=== PATIENT | female | born 1955 ===

== ENCOUNTER 2017-09-03 14:30 | Inpatient (IN) | payer OTHER ==
[~2017-09-03] VITALS: Ht 160 cm; Wt 59.0 kg
[~2017-09-03 14:30] MED LIST: AMITRIPTYLINE H50 MG; NABUMETONE750 MG; NEURONTIN300 MG; PRILOSEC20 MG; TRAMADOL HCL50 MG
[2017-09-03] MEDS ORDERED: VOLTAREN-XR100 MG PO (15:14)
[2017-09-03] MEDS ORDERED: FLOVENT DISKUS50 MCG IH (15:15)
[2017-09-03] MEDS ORDERED: VENTOLIN HFA18 GM IH (15:18)
[2017-09-03] MEDS ORDERED: XANAX0.25 MG PO (15:19)
[2017-09-03] MEDS ORDERED: CYMBALTA60 MG PO (15:19)
[2017-09-03] MEDS ORDERED: SINGULAIR10 MG PO (15:20)
[2017-09-07] MEDS ORDERED: DUI500 PO (08:35)
[2017-09-07] MEDS ORDERED: XARELTO10 MG PO (08:35)
[2017-09-07] MEDS ORDERED: PERCOCET 5-3251 EACH PO (08:36)
== END 2017-09-07 12:35 | DRG 470 ==
LOC: SURG 09-04 06:38 → O/R 09-04 06:38 → SURH 09-04 14:30 → SURG 09-04 17:48
PROVIDERS: Orthopaedic Surgery
PROC: 0QND0ZZ Release Right Patella, Open Approach (ICD-10-PCS; 2017-09-04)
PROC: 0SRC0J9 Replacement of Right Knee Joint with Synthetic Substitute, Cemented, Open Approach (ICD-10-PCS; principal; 2017-09-04 15:30)
PROC: 30233N1 Transfusion of Nonautologous Red Blood Cells into Peripheral Vein, Percutaneous Approach (ICD-10-PCS; 2017-09-05)
DX: M17.11 Unilateral primary osteoarthritis, right knee (principal); M80.00XA Age-related osteoporosis with current pathological fracture, unspecified site, initial encounter for fracture; S82.231 Displaced oblique fracture of shaft of right tibia; D62 Acute posthemorrhagic anemia; M06.861 Other specified rheumatoid arthritis, right knee; M79.7 Fibromyalgia